=== PATIENT | male | born 1965 | race African-American/Black ===

== ENCOUNTER 2024-03-01 06:56 | Emergency (ER) | payer OTHER ==
[~2024-03-01] VITALS: Ht 180.3 cm; Wt 168.0 kg
[2024-03-01 08:20] VITALS: BP 148/87; PULSE 98; RESP 20; TEMP 97.8; O2SAT 94
[2024-03-01] MEDS ORDERED: CYCL-837 PO (09:23)
[2024-03-01] MEDS ORDERED: IBUP-1454 PO (09:23)
== END 2024-03-01 09:45 | disposition home or self-care (01) ==
LOC: EDBD 06:56 → ER 06:56
DX: S00.81XA Abrasion of other part of head, initial encounter (principal); Z79.899 Other long term (current) drug therapy; V89.2XXA Person injured in unspecified motor-vehicle accident, traffic, initial encounter; Y93.I9 Activity, other involving external motion; Y92.89 Other specified places as the place of occurrence of the external cause; Y99.8 Other external cause status
CPT/HCPCS: 70450